=== PATIENT | male | born 1960 | race Caucasian/White ===

== ENCOUNTER 2017-03-26 09:39 | Emergency (ER) | payer BC ==
[~2017-03-26] VITALS: Ht 172.7 cm; Wt 103.4 kg
[~2017-03-26 09:39] MED LIST: AMLO1TAB15 PO; FENO145T2 PO
[2017-03-26] MEDS ORDERED: IV NORMAL SALINE 1000ML BAG 1,000 ML IV SCH (10:14)
[2017-03-26] MEDS ORDERED: 0.9 % SODIUM CHLORIDE 10 ML DISP.SYRIN. IV PRN (10:15)
--- NOTE | 2017-03-26 10:25 | PHYS DOC ---
Past Medical History Past Medical History: High Cholesterol, Hypertension, Kidney Stone Past Surgical History: Other Additional Past Surgical Histo: hand, knee surgery in December. 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 Patient developed flank pain that radiated across the abdomen described as sharp and stabbing much like his prior history of kidney stones. He became increasingly nauseated but did not vomit, he did not have any diarrhea, UTI symptoms just urgency. He denies any dysuria or frequency. He denies any fever, chills although he became diaphoretic with the pain. He had local massage and time. Patient's symptoms improved. He denies any chest pain, shortness of breath, direct trauma or other symptoms. His last evaluation for a kidney stone was greater than 2 years ago. His pain right now is minimal 1-2 out of 10. Review of Systems Review of Systems Constitutional: She has complained of diaphoresis with pain. Eyes: Denies change in visual acuity, redness, or eye pain [] HENT: Denies nasal congestion or sore throat [] Respiratory: Denies cough or shortness of breath [] Cardiovascular: No additional information not addressed in HPI [] GI: he has had some abdominal pain on the left flank with some nausea without vomiting diarrhea constipation or loose stools. : Denies dysuria or hematuria [] Musculoskeletal: Does complain of back pain on the left. [] Integument: Denies rash or skin lesions [] Neurologic: Denies headache, focal weakness or sensory changes [] Endocrine: Denies polyuria or polydipsia [] Current Medications Current Medications Current Medications Medications (Trade) Dose Ordered Sig/Mohamud Start Time Stop Time Status Last Admin Dose Admin Ketorolac Tromethamine (Toradol) 30 mg 1X ONCE 03/26/17 10:30 03/26/17 10:31 DC Ondansetron HCl (Zofran) 4 mg 1X ONCE 03/26/17 10:30 03/26/17 10:31 DC Sodium Chloride (Normal Saline Flush) 10 ml QSHIFT PRN 03/26/17 10:15 Allergies Allergies Allergies Coded Allergies Type Severity Reaction Last Updated Verified Penicillins Allergy Unknown 01/13/15 No oxycodone Adverse Reaction Intermediate Vomiting 01/14/15 No Physical Exam Physical Exam Patient's vital signs reviewed upon arrival noted to be hypertensive without tachypnea tachycardia or hypoxia. Constitutional: Well developed, well nourished, no acute distress, non-toxic appearance. [] HENT: Normocephalic, atraumatic, bilateral external ears normal, oropharynx moist, no oral exudates, nose normal. [] Eyes: PERRLA, EOMI, conjunctiva normal, no discharge. [] Neck: Normal range of motion, no tenderness, supple, no stridor. [] Cardiovascular:Heart rate regular rhythm, no murmur [] Lungs & Thorax: Bilateral breath sounds clear to auscultation [] Abdomen: Bowel sounds normal, soft, no tenderness, no masses, no pulsatile masses. [] Skin: Warm, dry, no erythema, no rash. [] Back: No tenderness, no CVA tenderness. [] Extremities: No tenderness, no cyanosis, no clubbing, ROM intact, no edema. [] Neurologic: Alert and oriented X 3, normal motor function, normal sensory function, no focal deficits noted. [] Psychologic: Affect normal, judgement normal, mood normal. [] Current Patient Data Vital Signs Vital Signs Date Time Temp Pulse Resp B/P (MAP) Pulse Ox O2 Delivery O2 Flow Rate FiO2 03/26/17 10:30 70 16 149/68 (95) 97 Room Air 03/26/17 09:50 98.0 98.0 Lab Values Laboratory Tests Test 03/26/17 10:20 03/26/17 10:32 Urine Collection Type Unknown Urine Color Yellow Urine Clarity Cloudy Urine pH 6.0 Urine Specific [place] 1.020 Urine Protein Negative mg/dL (NEG-TRACE) Urine Glucose (UA) 100 mg/dL (NEG) Urine Ketones (Stick) Negative mg/dL (NEG) Urine Blood Large (NEG) Urine Nitrite Negative (NEG) Urine Bilirubin Negative (NEG) Urine Urobilinogen Dipstick 0.2 mg/dL (0.2 mg/dL) Urine Leukocyte Esterase Negative (NEG) Urine RBC Tntc /HPF (0-2) Urine WBC 0 /HPF (0-4) Urine Bacteria 0 /HPF (0-FEW) Urine Mucus Slight /LPF White Blood Count 7.5 x10^3/uL (4.0-11.0) Red Blood Count 4.52 x10^6/uL (4.30-5.70) Hemoglobin 13.7 g/dL (13.0-17.5) Hematocrit 39.2 % (39.0-53.0) Mean Corpuscular Volume 87 fL (79-100) Mean Corpuscular Hemoglobin 30 pg (25-35) Mean Corpuscular Hemoglobin Concent 35 g/dL (31-37) Red Cell Distribution Width 13.6 % (11.5-14.5) Platelet Count 301 x10^3/uL (140-400) Neutrophils (%) (Auto) 77 % (31-73) H Lymphocytes (%) (Auto) 14 % (24-48) L Monocytes (%) (Auto) 6 % (0-9) Eosinophils (%) (Auto) 2 % (0-3) Basophils (%) (Auto) 1 % (0-3) Neutrophils # (Auto) 5.8 x10^3uL (1.8-7.7) Lymphocytes # (Auto) 1.0 x10^3/uL (1.0-4.8) Monocytes # (Auto) 0.5 x10^3/uL (0.0-1.1) Eosinophils # (Auto) 0.2 x10^3/uL (0.0-0.7) Basophils # (Auto) 0.1 x10^3/uL (0.0-0.2) Sodium Level 139 mmol/L (136-145) Potassium Level 3.9 mmol/L (3.5-5.1) Chloride Level 102 mmol/L (98-107) Carbon Dioxide Level 26 mmol/L (21-32) Anion Gap 11 (6-14) Blood Urea Nitrogen 29 mg/dL (8-26) H Creatinine 1.3 mg/dL (0.7-1.3) Estimated GFR (Cockcroft-Gault) 56.7 BUN/Creatinine Ratio 22 (6-20) H Glucose Level 223 mg/dL (70-99) H Calcium Level 9.3 mg/dL (8.5-10.1) Total Bilirubin 0.6 mg/dL (0.2-1.0) Aspartate Amino Transferase (AST) 20 U/L (15-37) Alanine Aminotransferase (ALT) 38 U/L (16-63) Alkaline Phosphatase 51 U/L (46-116) Creatine Kinase 155 U/L (39-308) Creatine Kinase MB (Mass) 1.2 ng/mL (0.0-3.6) Creatine Kinase MB Relative Index 0.8 % (0-4) Troponin I Quantitative < 0.017 ng/mL (0.000-0.055) Total Protein 7.0 g/dL (6.4-8.2) Albumin 4.5 g/dL (3.4-5.0) Albumin/Globulin Ratio 1.8 (1.0-1.7) H Lipase 124 U/L (73-393) Laboratory Tests 03/26/17 10:32 Laboratory Tests 03/26/17 10:32 EKG EKG [] Radiology/Procedures Radiology/Procedures [] [facility] [address] [place], [place] [id number] IMAGING REPORT Signed PATIENT: JONATHAN MONTANO ACCOUNT: [id number] : 1960 LOCATION: ER AGE: 56 SEX: M EXAM STATUS: REG ER ORD. PHYSICIAN: JOSHUA MCMULLEN MD REASON: left lower back pain and flank pain PROCEDURE: CT ABDOMEN PELVIS WO CONTRAST Indication left-sided back and flank pain. Axial images to the abdomen and pelvis were obtained. The examination was tailored for the detection of renal and/or ureteral calculi. No IV or gastrointestinal contrast was administered. Note is made of a previous examination 01/14/2015. The lung bases are clear. The liver and spleen appear unremarkable. The gallbladder appears grossly normal. No pancreatic abnormality is seen. No adrenal anomalies are seen. There are occasional minute right renal calculi. On the left no renal calculi are seen. There is, however, hydronephrosis and mild hydroureter to the level of a 3 mm calculus in the distal left ureter several centimeters proximal to the UVJ. No additional finding in the abdomen is seen. Occasional diverticula are seen associated with the large bowel. IMPRESSION: 3 mm stone distal left ureter with associated mild obstructive uropathy Occasional minute right intrarenal calculi additionally noted PQRS Compliance Statement: One or more of the following individualized dose reduction techniques were utilized for this examination: 1. Automated exposure control 2. Adjustment of the mA and/or kV according to patient size 3. Use of iterative reconstruction technique Course & Med Decision Making Course & Med Decision Making Pertinent Labs and Imaging studies reviewed. (See chart for details) patient vital signs, history and physical taken into account the patient's past medical history is significant for kidney stones. Patient last evaluation was 2 years ago [] Reviewed laboratory work as well as CAT scan patient has mild hydroureter with no evidence of kidney stone infection. Dragon Disclaimer Dragon Disclaimer This electronic medical record was generated, in whole or in part, using a voice recognition dictation system. Departure Departure Impression: Primary Impression: Kidney calculi Additional Impression: Abdominal pain Disposition: 01 HOME, SELF-CARE Condition: IMPROVED Referrals: YOLANDE BURDEN DO (PCP) Patient Instructions: Diet for Kidney Stones, Kidney Stones Additional Instructions: This return for any new or increasing symptoms or given any question concerns. These return for fever greater than 102.2 with inability to urinate greater than 8-12 hours. Please see his medications as prescribed as that will help you pass this 3 mm kidney stone. Problem Qualifiers JOSHUA MCMULLEN MD Mar 26, 2017 10:25
[2017-03-26] MEDS ORDERED: ONDANSETRON PF 4 MG/2 ML VIAL. IV ONE (10:30)
[2017-03-26] MEDS ORDERED: KETOROLAC TROMETHAMINE 30 MG/ML INJ. IV ONE (10:30)
[2017-03-26 10:32] LABS: BILIRUBIN,URINE NEGATIVE (NEG); GLUCOSE,URINE 100 mg/dL (NEG); NITRITE,URINE NEGATIVE (NEG); PROTEIN,URINE NEGATIVE (NEG-TRACE); UROBILINOGEN,URINE 0.2 mg/dL (0.2 mg/dL)
[2017-03-26 10:45] LABS: BACTERIA,URINE 0 /HPF (0-FEW); RBC,URINE TNTC /HPF (0-2); WBC,URINE 0 /HPF (0-4)
[2017-03-26 10:50] LABS: BASO # 0.1 x10^3/uL (0.0-0.2); BASO % 1 % (0-3); EOS % 2 % (0-3); HEMATOCRIT 39.2 % (39.0-53.0); HEMOGLOBIN 13.7 g/dL (13.0-17.5); LYMPH % 14 % (24-48); MEAN CORPUSCULAR HEMOGLOBIN 30 pg (25-35); MEAN CORPUSCULAR HGB CONC 35 g/dL (31-37); MEAN CORPUSCULAR VOLUME 87 fL (79-100); MONO % 6 % (0-9); NEUT % 77 % (31-73); PLATELET COUNT 301 x10^3/uL (140-400); RED BLOOD COUNT 4.52 x10^6/uL (4.30-5.70); RED CELL DISTRIBUTION WIDTH 13.6 % (11.5-14.5); WHITE BLOOD COUNT 7.5 x10^3/uL (4.0-11.0)
[2017-03-26 11:01] LABS: CALCIUM 9.3 mg/dL (8.5-10.1); CREATININE 1.3 mg/dL (0.7-1.3); GFR 56.7; POTASSIUM 3.9 mmol/L (3.5-5.1)
[2017-03-26 11:08] LABS: ALBUMIN 4.5 g/dL (3.4-5.0); ALBUMIN/GLOBULIN RATIO 1.8 (1.0-1.7); TOTAL BILIRUBIN 0.6 mg/dL (0.2-1.0)
[2017-03-26 11:15] LABS: CKMB MASS 1.2 ng/mL (0.0-3.6)
--- NOTE | 2017-03-26 11:44 | EKG ---
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
--- NOTE | 2017-03-26 12:18 | RAD ---
Indication left-sided back and flank pain. Axial images to the abdomen and pelvis were obtained. The examination was tailored for the detection of renal and/or ureteral calculi. No IV or gastrointestinal contrast was administered. Note is made of a previous examination 01/14/2015. The lung bases are clear. The liver and spleen appear unremarkable. The gallbladder appears grossly normal. No pancreatic abnormality is seen. No adrenal anomalies are seen. There are occasional minute right renal calculi. On the left no renal calculi are seen. There is, however, hydronephrosis and mild hydroureter to the level of a 3 mm calculus in the distal left ureter several centimeters proximal to the UVJ. No additional finding in the abdomen is seen. Occasional diverticula are seen associated with the large bowel. IMPRESSION: 3 mm stone distal left ureter with associated mild obstructive uropathy Occasional minute right intrarenal calculi additionally noted PQRS Compliance Statement: One or more of the following individualized dose reduction techniques were utilized for this examination: 1. Automated exposure control 2. Adjustment of the mA and/or kV according to patient size 3. Use of iterative reconstruction technique
[2017-03-26 12:30] VITALS: BP 137/71
[2017-03-26] MEDS ORDERED: ONDA4TAB10 PO (12:55)
[2017-03-26] MEDS ORDERED: NAPR500T PO (12:55)
[2017-03-26] MEDS ORDERED: HYDR-2758 PO (12:55)
[2017-03-26] MEDS ORDERED: TAMS0.4C97 PO (12:55)
== END 2017-03-26 13:10 | disposition home or self-care (01) ==
LOC: ER 09:39
DX: N20.0 Calculus of kidney (principal); E78.00 Pure hypercholesterolemia, unspecified; I10 Essential (primary) hypertension; Z88.0 Allergy status to penicillin; Z88.5 Allergy status to narcotic agent
CPT/HCPCS: 36415; 74176; 80053; 81001; 82553; 83690; 84484; 85027; 93005; 99285-25